=== PATIENT | male | born 1975 | race American Indian/Alaskan Native ===

== ENCOUNTER 2017-11-10 01:25 | Emergency (ER) | payer BC ==
[2017-11-10 01:56] VITALS: BP 161/100
[2017-11-10] MEDS ORDERED: TORADOL IM ONE (02:54)
--- NOTE | 2017-11-10 02:59 | Emergency Department Report ---
ED ENT HPI - General Chief complaint: Dental/Oral Stated complaint: TOOTHACHE Time Seen by Provider: 11/10/17 02:10 Source: patient Mode of arrival: Ambulatory Limitations: No Limitations - History of Present Illness Initial comments: This is a 42-year-old male nontoxic, well nourished in appearance, no acute signs of distress presents to the ED with c/o of toothache x2 days. Patient denies any trauma to the region. Denies any facial swelling, difficulty breathing, nausea, vomiting, chest pain, breath, headache, stiff neck, fever, chills, numbness or tingling. Patient denies falling up with a dentist. Denies any allergies. Past medical history includes hypertension that he currently takes medication and follow-up with primary care doctor. MD complaint: tooth pain -: days(s) (2) Location: tooth # () 1 - Toothache Severity: mild Severity scale (0 -10): 8 Quality: aching Consistency: constant Improves with: none Worsens with: none Context- Dental: history of dental caries, poor dental care Associated Symptoms: gum swelling, toothache. denies: fever, cough, pain with swallowing, sore throat, tinnitus, hearing loss, discharge from ear, rhinorrhea - Related Data Home Medications Medication Instructions Recorded Confirmed Last Taken Amlodipine Besylate [Norvasc] 10 mg PO HS 11/10/17 11/10/17 1 Day Ago ~11/09/17 Hydralazine HCl 50 mg PO TID 11/10/17 11/10/17 1 Day Ago ~11/09/17 Lisinopril/Hydrochlorothiazide 1 tab PO QDAY 11/10/17 11/10/17 1 Day Ago [Zestoretic 20-12.5 mg] ~11/09/17 Previous Rx's Medication Instructions Recorded Last Taken Type Amoxicillin/K Clav Tab [Augmentin 1 tab PO Q12HR #20 tab 11/10/17 Unknown Rx 875 mg] Chlorhexidine Mouthwash [Peridex] 15 ml MM BID 10 Days bottle 11/10/17 Unknown Rx traMADol [Ultram] 50 mg PO Q6HR PRN #12 tablet 11/10/17 Unknown Rx Allergies Allergy/AdvReac Type Severity Reaction Status Date / Time No Known Allergies Allergy Verified 11/10/17 02:13 ED Dental HPI - General Chief complaint: Dental/Oral Stated complaint: TOOTHACHE Time Seen by Provider: 11/10/17 02:10 Source: patient Mode of arrival: Ambulatory Limitations: No Limitations - Related Data Home Medications Medication Instructions Recorded Confirmed Last Taken Amlodipine Besylate [Norvasc] 10 mg PO HS 11/10/17 11/10/17 1 Day Ago ~11/09/17 Hydralazine HCl 50 mg PO TID 11/10/17 11/10/17 1 Day Ago ~11/09/17 Lisinopril/Hydrochlorothiazide 1 tab PO QDAY 11/10/17 11/10/17 1 Day Ago [Zestoretic 20-12.5 mg] ~11/09/17 Previous Rx's Medication Instructions Recorded Last Taken Type Amoxicillin/K Clav Tab [Augmentin 1 tab PO Q12HR #20 tab 11/10/17 Unknown Rx 875 mg] Chlorhexidine Mouthwash [Peridex] 15 ml MM BID 10 Days bottle 11/10/17 Unknown Rx traMADol [Ultram] 50 mg PO Q6HR PRN #12 tablet 11/10/17 Unknown Rx Allergies Allergy/AdvReac Type Severity Reaction Status Date / Time No Known Allergies Allergy Verified 11/10/17 02:13 ED Review of Systems ROS: Stated complaint: TOOTHACHE Other details as noted in HPI Constitutional: denies: chills, fever Eyes: denies: eye pain, eye discharge, vision change ENT: dental pain. denies: ear pain, throat pain Respiratory: denies: cough, shortness of breath, wheezing Cardiovascular: denies: chest pain, palpitations Endocrine: no symptoms reported Gastrointestinal: denies: abdominal pain, nausea, diarrhea Genitourinary: denies: urgency, dysuria Musculoskeletal: denies: back pain, joint swelling, arthralgia Skin: denies: rash, lesions Neurological: denies: headache, weakness, paresthesias Psychiatric: denies: anxiety, depression Hematological/Lymphatic: denies: easy bleeding, easy bruising ED Past Medical Hx - Past Medical History Hx Hypertension: Yes - Surgical History Past Surgical History?: No - Social History Smoking Status: Never Smoker Substance Use Type: None - Medications Home Medications: Home Medications Medication Instructions Recorded Confirmed Last Taken Type Amlodipine Besylate [Norvasc] 10 mg PO HS 11/10/17 11/10/17 1 Day Ago History ~11/09/17 Amoxicillin/K Clav Tab [Augmentin 1 tab PO Q12HR #20 tab 11/10/17 Unknown Rx 875 mg] Chlorhexidine Mouthwash [Peridex] 15 ml MM BID 10 Days bottle 11/10/17 Unknown Rx Hydralazine HCl 50 mg PO TID 11/10/17 11/10/17 1 Day Ago History ~11/09/17 Lisinopril/Hydrochlorothiazide 1 tab PO QDAY 11/10/17 11/10/17 1 Day Ago History [Zestoretic 20-12.5 mg] ~11/09/17 traMADol [Ultram] 50 mg PO Q6HR PRN #12 tablet 11/10/17 Unknown Rx ED Physical Exam - General Limitations: No Limitations General appearance: alert, in no apparent distress - Head Head exam: Present: atraumatic, normocephalic, normal inspection - Eye Eye exam: Present: normal appearance, PERRL, EOMI. Absent: scleral icterus, conjunctival injection, nystagmus, periorbital swelling, periorbital tenderness Pupils: Present: normal accommodation - ENT ENT exam: Present: normal exam, normal orophraynx, mucous membranes moist, TM's normal bilaterally, normal external ear exam - Expanded ENT Exam Expanded Ear exam: Present: normal external inspection Mouth exam: Present: normal external inspection, tongue normal. Absent: drooling, trismus, muffled voice, tongue elevation, laceration Teeth exam: Present: dental caries, fractured tooth # (), dental tenderness # (), gingival enlargement, other (no swelling or abscesses noted.) Throat exam: Positive: normal inspection. Negative: tonsillar erythema, tonsillomegaly, tonsillar exudate, R peritonsillar mass, L peritonsillar mass - Neck Neck exam: Present: normal inspection, full ROM. Absent: tenderness, meningismus, lymphadenopathy, thyromegaly - Respiratory Respiratory exam: Present: normal lung sounds bilaterally. Absent: respiratory distress, wheezes, rales, rhonchi, stridor, chest wall tenderness, accessory muscle use, decreased breath sounds, prolonged expiratory - Cardiovascular Cardiovascular Exam: Present: regular rate, normal rhythm, normal heart sounds. Absent: bradycardia, tachycardia, irregular rhythm, systolic murmur, diastolic murmur, rubs, gallop - GI/Abdominal GI/Abdominal exam: Present: soft, normal bowel sounds. Absent: distended, guarding, rebound, rigid, diminished bowel sounds - Rectal Rectal exam: Present: deferred - Extremities Exam Extremities exam: Present: normal inspection, full ROM, normal capillary refill. Absent: tenderness, pedal edema, joint swelling, calf tenderness - Back Exam Back exam: Present: normal inspection, full ROM. Absent: tenderness, CVA tenderness (R), CVA tenderness (L), muscle spasm, paraspinal tenderness, vertebral tenderness, rash noted - Neurological Exam Neurological exam: Present: alert, oriented X3, CN II-XII intact, normal gait, reflexes normal - Psychiatric Psychiatric exam: Present: normal affect, normal mood - Skin Skin exam: Present: warm, dry, intact, normal color. Absent: rash ED Course Vital Signs 11/10/17 01:53 Temperature 98.5 F Pulse Rate 83 Respiratory 18 Rate Blood Pressure 161/100 O2 Sat by Pulse 100 Oximetry - Reevaluation(s) Reevaluation #1: 11/10/17 03:00 Patient is speaking in full sentences with no signs of distress noted. ED Medical Decision Making - Medical Decision Making This is a 42-year-old male that presents with dental caries and gingivitis. Patient stable and was examined by me. Patient states Toradol 30 mg IM to ED. Patient received Augmentin at discharge. There is no signs of any cellulitis or abscess formation upon examination. Patient was instructed Follow-up with a primary care doctor/dentist in 3-5 days or if symptoms worsen and continue return to emergency room as soon as possible. At time time of discharge, the patient does not seem toxic or ill in appearance. No acute signs of distress noted. Patient agrees to discharge treatment plan of care. No further questions noted by the patient. Patient received Ultram at discharge and was instructed not to operate any machinery while taking Ultram due to drowsiness. Critical care attestation.: If time is entered above; I have spent that time in minutes in the direct care of this critically ill patient, excluding procedure time. ED Disposition Clinical Impression: Dental caries, Gingivitis Disposition: DC-01 TO HOME OR SELFCARE Is pt being admited?: No Does the pt Need Aspirin: No Condition: Stable Instructions: Dental Caries (ED), Gingivitis (ED), Amoxicillin/Clavulanate Potassium (By mouth), Tramadol (By mouth) Additional Instructions: Follow-up with a primary care doctor/dentist in 3-5 days or if symptoms worsen and continue return to emergency room as soon as possible. Do not operate any machinery while taking the Ultram due to drowsiness. Prescriptions: Amoxicillin/K Clav Tab [Augmentin 875 mg] 1 tab PO Q12HR #20 tab Chlorhexidine Mouthwash [Peridex] 15 ml MM BID 10 Days bottle traMADol [Ultram] 50 mg PO Q6HR PRN #12 tablet PRN Reason: Pain Referrals: PRIMARY CARE,MD [Primary Care Provider] - 3-5 Days OLI LIN MD [Staff Physician] - 3-5 Days [facility] [Outside] - 3-5 Days Forms: Work/School Release Form(ED)
== END 2017-11-10 03:21 | disposition home or self-care (01) ==
LOC: ED 01:25
DX: K02.9 Dental caries, unspecified (principal); K05.10 Chronic gingivitis, plaque induced; I10 Essential (primary) hypertension
CPT/HCPCS: 96372; 99282

== ENCOUNTER 2019-10-04 22:54 | Emergency (ER) | payer BC ==
[2019-10-04 23:01] VITALS: BP 147/108
--- NOTE | 2019-10-04 23:48 | XRay Report ---
RIGHT ANKLE, 3 VIEWS INDICATION / CLINICAL INFORMATION: Pain and swelling. COMPARISON: None available. FINDINGS: There is significant soft tissue swelling laterally. There is a 5 mm bone fragment adjacent to the ca lcaneus which could represent a small avulsion fracture. No other significant fracture is noted. Alig nment is normal. IMPRESSION: Prominent lateral soft tissue swelling. There is a 5 mm bone fragment adjacent to the inf erolateral calcaneus which could represent a small chip fracture. Signer Name: Mandy Mejia MD Signed: 10/04/2019 11:43 PM Workstation Name: [id number]
[2019-10-05] MEDS ORDERED: HYDROcodone/ACETAMINOPHEN 5-325 MG TAB PO ONE (02:06)
--- NOTE | 2019-10-05 02:30 | Emergency Department Report ---
ED Lower Extremity HPI - General Chief Complaint: Extremity Injury, Upper Stated Complaint: RT SWOLLEN ANKLE Time Seen by Provider: 10/05/19 01:58 Source: patient Mode of arrival: Ambulatory Limitations: No Limitations - History of Present Illness Initial Comments: Mr. Salomon, is a 44 y/o aam who presents for right lateral ankle pain swelling s/p glf this am, states pain is 5/10 exacerbated weight bearing, pain is relieved by off loading and elvation. There is associated swelling and tingling. No deformity MD Complaint: ankle injury Onset/Timin -: days(s) Injury: Ankle: Right Type of Injury: eversion Place: home Severity: moderate Severity scale (0 -10): 5 Improves With: rest Worsens With: weight bearing, movement, palpation Context: fall Associated Symptoms: swelling, tingling, unable to bear weight. denies: numbness - Related Data Home Medications Medication Instructions Recorded Confirmed Last Taken Amlodipine Besylate [Norvasc] 10 mg PO HS 11/10/17 11/10/17 1 Day Ago ~11/09/17 Hydralazine HCl 50 mg PO TID 11/10/17 11/10/17 1 Day Ago ~11/09/17 Lisinopril/Hydrochlorothiazide 1 tab PO QDAY 11/10/17 11/10/17 1 Day Ago [Zestoretic 20-12.5 mg] ~11/09/17 Previous Rx's Medication Instructions Recorded Last Taken Type Amoxicillin/K Clav Tab [Augmentin 1 tab PO Q12HR #20 tab 11/10/17 Unknown Rx 875 mg] Chlorhexidine Mouthwash [Peridex] 15 ml MM BID 10 Days bottle 11/10/17 Unknown Rx traMADol [Ultram] 50 mg PO Q6HR PRN #12 tablet 11/10/17 Unknown Rx HYDROcodone/APAP 5-325 [[place] 1 each PO Q6HR PRN #12 tablet 10/05/19 Unknown Rx 5-325 mg TAB] Allergies Allergy/AdvReac Type Severity Reaction Status Date / Time No Known Allergies Allergy Verified 11/10/17 02:13 ED Review of Systems ROS: Stated complaint: RT SWOLLEN ANKLE Other details as noted in HPI Constitutional: denies: chills, fever Eyes: denies: eye pain, eye discharge, vision change ENT: denies: ear pain, throat pain Respiratory: denies: cough, shortness of breath, wheezing Cardiovascular: denies: chest pain, palpitations Endocrine: no symptoms reported Gastrointestinal: denies: abdominal pain, nausea, diarrhea Genitourinary: denies: urgency, dysuria Musculoskeletal: joint swelling (right lateral ankle). denies: back pain, arthralgia Skin: denies: rash, lesions Neurological: denies: headache, weakness, paresthesias Psychiatric: denies: anxiety, depression Hematological/Lymphatic: denies: easy bleeding, easy bruising ED Past Medical Hx - Past Medical History Previous Medical History?: Yes Hx Hypertension: Yes - Surgical History Past Surgical History?: Yes Additional Surgical History: hand - Social History Smoking Status: Never Smoker Substance Use Type: Alcohol - Medications Home Medications: Home Medications Medication Instructions Recorded Confirmed Last Taken Type Amlodipine Besylate [Norvasc] 10 mg PO HS 11/10/17 11/10/17 1 Day Ago History ~11/09/17 Amoxicillin/K Clav Tab [Augmentin 1 tab PO Q12HR #20 tab 11/10/17 Unknown Rx 875 mg] Chlorhexidine Mouthwash [Peridex] 15 ml MM BID 10 Days bottle 11/10/17 Unknown Rx Hydralazine HCl 50 mg PO TID 11/10/17 11/10/17 1 Day Ago History ~11/09/17 Lisinopril/Hydrochlorothiazide 1 tab PO QDAY 11/10/17 11/10/17 1 Day Ago History [Zestoretic 20-12.5 mg] ~11/09/17 traMADol [Ultram] 50 mg PO Q6HR PRN #12 tablet 11/10/17 Unknown Rx HYDROcodone/APAP 5-325 [[place] 1 each PO Q6HR PRN #12 tablet 10/05/19 Unknown Rx 5-325 mg TAB] ED Physical Exam - General Limitations: No Limitations General appearance: alert, in no apparent distress - Head Head exam: Present: atraumatic, normocephalic - Eye Eye exam: Present: normal appearance - ENT ENT exam: Present: mucous membranes moist - Neck Neck exam: Present: normal inspection - Respiratory Respiratory exam: Present: normal lung sounds bilaterally. Absent: respiratory distress - Cardiovascular Cardiovascular Exam: Present: regular rate, normal rhythm, normal heart sounds. Absent: systolic murmur, diastolic murmur, rubs, gallop - GI/Abdominal GI/Abdominal exam: Present: soft, normal bowel sounds - Rectal Rectal exam: Present: deferred - Extremities Exam Extremities exam: Present: normal inspection, full ROM, tenderness (right lateral ankle), normal capillary refill, joint swelling. Absent: pedal edema - Expanded Lower Extremity Exam Right Ankle exam: Present: tenderness, swelling. Absent: abrasion, laceration, ec chymosis, deformity, crepidus, dislocation, erythema, anterior draw sign Foot/Toe exam: Present: full ROM, tenderness, swelling Neuro vascular tendon exam: Absent: pulse deficit, motor deficit, sensory deficit, tendon deficit, extremity cold to touch, foot drop Gait: Positive: unable to bear weight - Back Exam Back exam: Present: normal inspection, full ROM. Absent: tenderness - Neurological Exam Neurological exam: Present: alert, oriented X3, CN II-XII intact, abnormal gait (unable to bear weight on right ankle ), reflexes normal. Absent: motor sensory deficit - Expanded Neurological Exam Expanded Motor strength exam: RLE: 5, LLE: 5 Best Eye Response ([place]): (4) open spontaneously Best Motor Response ([place]): (6) obeys commands Best Verbal Response ([place]): (5) oriented [place] Total: 15 - Psychiatric Psychiatric exam: Present: normal affect, normal mood - Skin Skin exam: Present: warm, dry, intact, normal color. Absent: rash ED Course Vital Signs 10/04/19 22:59 Temperature 98.4 F Pulse Rate 96 H Respiratory 22 Rate Blood Pressure 147/108 O2 Sat by Pulse 95 Oximetry ED Lower Extremity MDM - Radiology Data Radiology results: report reviewed, image reviewed Ordering Physician: JOSE GONZALES MD Date of Service: 10/04/19 Procedure(s): XR ankle 3+V RT Accession Number(s): [id number] cc: ED MD CHRISTIAN Fluoro Time In Minutes: RIGHT ANKLE, 3 VIEWS INDICATION / CLINICAL INFORMATION: Pain and swelling. COMPARISON: None available. FINDINGS: There is significant soft tissue swelling laterally. There is a 5 mm bone fragment adjacent to the calcaneus which could represent a small avulsion fracture. No other significant fracture is noted. Alignment is normal. IMPRESSION: Prominent lateral soft tissue swelling. There is a 5 mm bone fragment adjacent to the inferolateral calcaneus which could represent a small chip fracture. Signer Name: Mandy Mejia MD Signed: 10/04/2019 11:43 PM Workstation Name: [id number] Transcribed By: JR Dictated By: Mandy Mejia MD Electronically Authenticated By: Mandy Mejia MD Signed Date/Time: 10/04/192342 DD/ 40 TD/TT: - Medical Decision Making pain is reduced to /10 , There is no deformity , distal pulses intact, xray: ? 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 Critical care attestation.: If time is entered above; I have spent that time in minutes in the direct care of this critically ill patient, excluding procedure time. ED Disposition Clinical Impression: Closed right ankle fracture Qualifiers: Encounter type: initial encounter Qualified Code(s): S82.891A - Other fracture of right lower leg, initial encounter for closed fracture Disposition: DC-01 TO HOME OR SELFCARE Is pt being admited?: No Does the pt Need Aspirin: No Condition: Stable Instructions: Ankle Fracture (ED), Crutch Instructions (ED) Prescriptions: HYDROcodone/APAP 5-325 [[place] 5-325 mg TAB] 1 each PO Q6HR PRN #12 tablet PRN Reason: Pain Referrals: SHEHU SARAH [Other] - 3-5 Days ROCIO FLETCHER MD [Staff Physician] - 3-5 Days Forms: Work/School Release Form(ED) Time of Disposition: 03:17
== END 2019-10-05 03:20 | disposition home or self-care (01) ==
LOC: ED 22:54
DX: S82.891A Other fracture of right lower leg, initial encounter for closed fracture (principal); I10 Essential (primary) hypertension; Z79.899 Other long term (current) drug therapy; W04.XXXA Fall while being carried or supported by other persons, initial encounter; Y93.89 Activity, other specified; Y92.098 Other place in other non-institutional residence as the place of occurrence of the external cause; Y99.8 Other external cause status

== ENCOUNTER 2020-02-08 20:20 | Emergency (ER) | payer BC ==
[2020-02-08 20:41] VITALS: BP 159/119
--- NOTE | 2020-02-08 20:58 | Emergency Department Report ---
Chief Complaint: Upper Respiratory Infection Stated Complaint: CHILLS,BODY PAIN,BODY SWEATS Time Seen by Provider: 02/08/20 20:49 - HPI History of Present Illness: 44-year-old -[place] male with past medical history of hypertension presents emerged department complaining of feeling somewhat weak earlier today while he was at work and blood pressure elevation due to not taking his p.m. dose of hypertension medications. States he has some general chills and muscle aches as well which is been sporadic for the last last day. Ports no nausea, no vomiting, no sore throat, no coughing, no congestion, no active fever, no presyncope no hemoptysis no hematemesis no hematochezia - ROS Review of Systems: As per HPI all other systems are negative - Exam Vital Signs: Vital Signs 02/08/20 20:36 Temperature 98.8 F Pulse Rate 91 H Respiratory 18 Rate Blood Pressure 159/119 O2 Sat by Pulse 100 Oximetry Physical Exam: Vital signs stable General: Patient is well nourished, well developed, awake and alert, resting comfortably in no acute distress Head: Normocephalic and atraumatic Eyes: Normal inspection, extraocular muscles intact, no conjunctival pallor Ear, nose, throat: Normal external exam Neck: Normal range of motion Respiratory: Patient is in no respiratory distress, lungs CTAB Cardiovascular: Patient is not tachycardic, RRR without murmur appreciated GI: Abd SNT with no guarding or rebound; +BS normoactive x 4, no tympanny to percussion Back: Normal inspection of the back with good strength and range of motion throughout all ext Extremities: pulses intact with good cap refills, no LE pitting edema or calf tenderness Neuro: The patient is alert and oriented to person, place, and time, appropriately conversive, with 5/5 bilat UE/LE strength, no gross motor or sensory defects noted. Coordination appears to be adequate. Skin: Warm, dry, and intact MSE screening note: Focused history and physical exam performed. Due to findings the following was ordered: ED Disposition for MSE Clinical Impression: Chills, Hypertension Disposition: Z- MED SCREENING EXAM-LEFT Is pt being admited?: No Does the pt Need Aspirin: No Condition: Stable Instructions: Weakness (ED), Hypertension (ED) Referrals: PRIMARY CARE, [Primary Care Provider] - 3-5 Days Forms: Work/School Release Form(ED)
== END 2020-02-08 21:20 | disposition left against medical advice (07) ==
LOC: ED 20:20
DX: R68.83 Chills (without fever) (principal); R52 Pain, unspecified; I10 Essential (primary) hypertension
CPT/HCPCS: 99281

== ENCOUNTER 2020-03-15 07:48 | Emergency (ER) | payer BC ==
[2020-03-15 07:59] VITALS: BP 152/104
[2020-03-15] MEDS ORDERED: KETOROLAC 30 MG/1 ML INJ IM ONE (08:37)
--- NOTE | 2020-03-15 08:38 | Emergency Department Report ---
ED Back Pain/Injury HPI - General Chief Complaint: Back Pain/Injury Stated Complaint: BACK PAIN Time Seen by Provider: 03/15/20 08:11 Source: patient Mode of arrival: Ambulatory Limitations: No Limitations - History of Present Illness Initial Comments: This is a 29-year-old -[place] male who presents to the emergency room with chest pain radiating to back since last night. Past medical history of hypertension. Patient denies any recent injury. He reports pain is worse with movement. He reports chest pain in epigastric region as sharp and stabbing intensity. Pain radiates to his back intermittently. He also reports constant burping with movement. He denies fever, chills, nausea, vomiting, diarrhea, or weakness. MD Complaint: back pain Onset/Timin -: days(s) Similar Symptoms Previously: No Place: home Severity: moderate Severity scale (0 -10): 6 Quality: sharp, stabbing Consistency: intermittent Worsens With: movement Associated Symptoms: denies: numbness, difficulty urinating, incontinence, fever/chills - Related Data Home Medications Medication Instructions Recorded Confirmed Last Taken Amlodipine Besylate [Norvasc] 10 mg PO HS 11/10/17 11/10/17 1 Day Ago ~11/09/17 Hydralazine HCl 50 mg PO TID 11/10/17 11/10/17 1 Day Ago ~11/09/17 Lisinopril/Hydrochlorothiazide 1 tab PO QDAY 11/10/17 11/10/17 1 Day Ago [Zestoretic 20-12.5 mg] ~11/09/17 Previous Rx's Medication Instructions Recorded Last Taken Type Amoxicillin/K Clav Tab [Augmentin 1 tab PO Q12HR #20 tab 11/10/17 Unknown Rx 875 mg] Chlorhexidine Mouthwash [Peridex] 15 ml MM BID 10 Days bottle 11/10/17 Unknown Rx traMADoL [Ultram] 50 mg PO Q6HR PRN #12 tablet 11/10/17 Unknown Rx HYDROcodone/APAP 5-325 [Clark 1 each PO Q6HR PRN #12 tablet 10/05/19 Unknown Rx 5-325 mg TAB] Methocarbamol [Robaxin] 500 mg PO BID PRN #15 tablet 03/15/20 Unknown Rx Allergies Allergy/AdvReac Type Severity Reaction Status Date / Time No Known Allergies Allergy Verified 11/10/17 02:13 ED Review of Systems ROS: Stated complaint: BACK PAIN Other details as noted in HPI Constitutional: denies: chills, fever Respiratory: denies: cough, shortness of breath, wheezing Cardiovascular: chest pain. denies: palpitations Gastrointestinal: denies: abdominal pain, nausea, diarrhea Musculoskeletal: back pain. denies: joint swelling, arthralgia Skin: denies: rash, lesions Neurological: denies: headache, weakness, paresthesias Psychiatric: denies: anxiety, depression ED Past Medical Hx - Past Medical History Obesity ED Back Pain Physical Exam - Exam General: Vital signs noted. No distress. Alert and acting appropriately. Back/Abdomen: Yes Perithoracic Tenderness (bilateral, negative midline or stepoff), No Abdominal Tenderness, No Perilumbar Tenderness, No Sacroiliac Tenderness, No Flank Tenderness, No Straight Leg Raise Pain Neuro: Yes Normal Sensation, Yes Normal DTR's, Yes Normal Gait, No Motor Weakness ED Course Vital Signs 03/15/20 07:58 Temperature 98.0 F Pulse Rate 68 Respiratory 20 Rate Blood Pressure 152/104 O2 Sat by Pulse 99 Oximetry ED Medical Decision Making - Lab Data Result diagrams: 03/15/20 08:42 03/15/20 08:42 Lab Results 03/15/20 03/15/20 Range/Units 08:42 08:42 WBC 5.1 (4.5-11.0) K/mm3 RBC 6.30 H (3.65-5.03) M/mm3 Hgb 14.4 (11.8-15.2) gm/dl Hct 45.0 (35.5-45.6) % MCV 71 L (84-94) fl MCH 23 L (28-32) pg MCHC 32 (32-34) % RDW 16.1 H (13.2-15.2) % Plt Count 213 (140-440) K/mm3 Lymph % (Auto) 27.8 (13.4-35.0) % [place] % (Auto) 10.1 H (0.0-7.3) % Eos % (Auto) 1.9 (0.0-4.3) % Baso % (Auto) 1.2 (0.0-1.8) % Lymph # 1.4 (1.2-5.4) K/mm3 [place] # 0.5 (0.0-0.8) K/mm3 Eos # 0.1 (0.0-0.4) K/mm3 Baso # 0.1 (0.0-0.1) K/mm3 Seg Neutrophils % 59.0 (40.0-70.0) % Seg Neutrophils # 3.0 (1.8-7.7) K/mm3 Sodium 137 (137-145) mmol/L Potassium 3.9 (3.6-5.0) mmol/L Chloride 99.7 (98-107) mmol/L Carbon Dioxide 23 (22-30) mmol/L Anion Gap 18 mmol/L BUN 17 (9-20) mg/dL Creatinine 1.5 (0.8-1.5) mg/dL Estimated GFR > 60 ml/min BUN/Creatinine Ratio 11 % Glucose 111 H (75-100) mg/dL Calcium 9.1 (8.4-10.2) mg/dL Total Bilirubin 0.30 (0.1-1.2) mg/dL AST 18 (5-40) units/L ALT 18 (7-56) units/L Alkaline Phosphatase 83 (35-129) units/L Troponin T < 0.010 (0.00-0.029) ng/mL Total Protein 7.3 (6.3-8.2) g/dL Albumin 3.8 L (3.9-5) g/dL Albumin/Globulin Ratio 1.1 % - Radiology Data Radiology results: report reviewed CHEST 2 VIEWS INDICATION / CLINICAL INFORMATION: chest pain. COMPARISON: None available. FINDINGS: SUPPORT DEVICES: None. HEART / MEDIASTINUM: The heart is normal in size with an ectatic aorta. LUNGS / PLEURA: No significant pulmonary or pleural abnormality. No pneumothor ax. ADDITIONAL FINDINGS: No significant additional findings. IMPRESSION: 1. No acute abnormality of the chest. - Medical Decision Making 45-year-old male complaining of chest pain radiating to his back with movement. Patient is nontoxic appearing and stable. Vitals are normal. Denies drug use, asthma, SOB, palpations, fever, or dyspnea. Past medical history of hypertension. Obtained CMP, CBC, troponin, and chest xray. All labs are unremarkable for emergent chest pain. Chest x-ray negative for acute cardiopulmonary findings. Due to work-up and exam there is low suspicion for acute coronary syndrome Spine fracture, acute spinal syndrome, or other emergent problems. Given analgesics. Physical assessment findings of bilateral perithoracic tenderness. Start analgesics, warm or cold compress, and increase activity as tolerated. Referrals given for PCP follow up. Discharged home stable. Follow up with PCP in 24-48 hours. Given strict return instructions. Critical care attestation.: If time is entered above; I have spent that time in minutes in the direct care of this critically ill patient, excluding procedure time. ED Disposition Clinical Impression: Back pain of thoracolumbar region Chest pain Qualifiers: Chest pain type: other chest pain Qualified Code(s): R07.89 - Other chest pain; R07.8 - Other chest pain Disposition: TO HOME OR SELFCARE Is pt being admited?: No Condition: Stable Instructions: Chest Pain (ED), Lumbar Radiculopathy (ED) Additional Instructions: Rest Use ice or heat on affected area for 20 minutes and off for 2 hours. Take pain medication as needed for pain. Don't drive or operate heavy machinery while taking muscle relaxers because they may cause drowsiness. Follow up with Primary Care Provider in 2-3 days. Prescriptions: Methocarbamol [Robaxin] 500 mg PO BID PRN #15 tablet PRN Reason: Muscle Spasm Referrals: CHANDLER HERMAN MD [Staff Physician] - 3-5 Days ALHAJI LEONE MD [Staff Physician] - 3-[address] [facility] [Provider Group] - 3-5 Days Time of Disposition: 09:42 ED Chest pain EXAM - General General appearance: alert, in no apparent distress, obese Limitations: No Limitations - Respiratory Respiratory Exam: Positive: Normal Lung Sounds Bilaterally. Negative: Wheezes, Rales, Rhonci, Stridor, Respiratory Distress, Chest Wall Tender, Chest Wall Non- Tendor, Accessory Muscle Use - Cardiovascular Cardiovascular Exam: Positive: regular rate, normal rhythm. Negative: bradycardia, tachycardia, irregular rhythm, rubs, gallop Peripheral pulses: 2+: Radial (R), Radial (L) - GI/Abdominal GI/Abdominal exam: Positive: soft, normal bowel sounds. Negative: distended, tenderness, guarding, rebound, rigid - Neurological Neurological exam: Positive: alert, oriented X3, normal gait - Psychiatric Psychiatric exam: Positive: normal affect, normal mood - Skin Skin exam: Positive: warm, dry, intact, normal color. Negative: rash
[2020-03-15 09:03] LABS: Basophils # (Auto) 0.1 K/mm3 (0.0-0.1); Basophils % (Auto) 1.2 % (0.0-1.8); Eosinophils # (Auto) 0.1 K/mm3 (0.0-0.4); Eosinophils % (Auto) 1.9 % (0.0-4.3); Hemoglobin 14.4 gm/dl (11.8-15.2); Lymphocytes # (Auto) 1.4 K/mm3 (1.2-5.4); Lymphocytes % (Auto) 27.8 % (13.4-35.0); Mean Corpuscular HGB Conc 32 % (32-34); Mean Corpuscular Volume 71 fl (84-94); Monocytes # (Auto) 0.5 K/mm3 (0.0-0.8); Monocytes % (Auto) 10.1 % (0.0-7.3); Platelet Count 213 K/mm3 (140-440); Red Cell Distribution Width 16.1 % (13.2-15.2)
--- NOTE | 2020-03-15 09:08 | XRay Report ---
CHEST 2 VIEWS INDICATION / CLINICAL INFORMATION: chest pain. COMPARISON: None available. FINDINGS: SUPPORT DEVICES: None. HEART / MEDIASTINUM: The heart is normal in size with an ectatic aorta. LUNGS / PLEURA: No significant pulmonary or pleural abnormality. No pneumothorax. ADDITIONAL FINDINGS: No significant additional findings. IMPRESSION: 1. No acute abnormality of the chest. Signer Name: Jose J Back MD Signed: 03/15/2020 9:04 AM Workstation Name: [id number]
[2020-03-15 09:29] LABS: Alanine Aminotransferase 18 units/L (7-56); Albumin 3.8 g/dL (3.9-5); BUN/Creatinine Ratio 11; Blood Urea Nitrogen 17 mg/dL (9-20); Calcium 9.1 mg/dL (8.4-10.2); Hemolysis Index 21
== END 2020-03-15 09:52 | disposition home or self-care (01) ==
LOC: ED 07:48
DX: R07.89 Other chest pain (principal); M54.5 Low back pain
CPT/HCPCS: 36415; 71046; 80053; 84484; 85025; 96372; 99283; J1885